=== PATIENT | female | born 1985 | race Caucasian/White ===

== ENCOUNTER 2016-12-10 05:01 | Emergency (ER) | payer BC ==
[2016-12-10 05:40] LABS: Hematocrit 42.9 % (37.0-47.0); Hemoglobin 14.1 gm/dL (12.5-16.0); Mean Cell Volume 87.7 fl (78-100); Mean Corpuscular Hemoglobin 28.8 pg (27-31); Mean Corpuscular Hgb Conc 32.9 g/dl (32-36); Mean Platelet Volume 10.4 fl (6.0-9.5); Neutrophil # 7.2 K/mm3 (1.3-6.0); Neutrophil % 68.5 % (42-75.0); Platelet Count 346 K/mm3 (150-450); Red Blood Count 4.89 M/mm3 (4.2-5.4); Red Cell Distribution Width 13.8 % (11.5-14.0); White Blood Count 10.5 K/mm3 (4.0-10.5)
[2016-12-10] MEDS ORDERED: ONDANSETRON 4 MG TAB.RAPDIS PO ONE (05:44)
[2016-12-10] MEDS ORDERED: ONDANSETRON 4 MG TAB.RAPDIS ONE (05:45)
--- NOTE | 2016-12-10 05:45 | ERNOTE ---
Medical Problem HPI - General Chief Complaint: General Assessment Time Seen by Provider: 12/10/16 05:21 Source: patient Exam Limitations: no limitations - Immun/Allergies/Home Medications Immunizations: IMMUNIZATION HX Immunizations Up to Date Yes History of Influenza Vaccine Yes Allergies/Adverse Reactions: Allergies No Known Drug Allergies Allergy (Verified 12/10/16 05:17) Home Medications: HOME MEDICATIONS Bupropion HCl [Wellbutrin Xl] 300 mg PO DAILY 12/10/16 [Last Taken Unknown] tiZANidine HCL [Zanaflex] 2 mg PO QID PRN #40 capsule 12/10/16 [Last Taken Unknown] - History of Present History Narrative: Pt states she has been having left flank spasm for 3-5 days. She was seen at [facility] and after having UA and abd xrays was told she was constipated. She was given IM toradol and norflex and a bottle of mag citrate and sent home. She did not take the mag citrate because it was late in the evening and did not want to be up all night. She was unable to sleep much and presented here Timing: getting worse Severity: moderate, severe Modifying Factors - (Improves): Present: rest - in certain positions on her couch to avoid spasm Modifying Factors - (Worsens): Present: movement Review of Systems - Review of Systems Constitutional: Absent: recent illness, fever EYE: Present: no symptoms reported ENT: Present: no symptoms reported Respiratory: Present: shortness of breath - only due to spasm of rib muscles Cardiology: Present: no symptoms reported Gastrointestinal/Abdominal: Present: See HPI, nausea. Absent: constipation - denies Genitourinary: Absent: frequency, pain Musculoskeletal: Present: See HPI, muscle pain, muscle stiffness Skin: Present: no symptoms reported Neurological: Present: no symptoms reported Endocrine: Present: no symptoms reported Hematologic/Lymphatic: Present: no symptoms reported Psych: Present: no symptoms reported - Patient's Past Medical History Patient History - Medical: No pertinent hx, Anxiety Patient History - Cardiac/Respiratory: No pertinent hx Patient History - Cancer: No Hx of Cancer Patient History - Surgical Procedures: No surgical history - Social History Living Situations: home Smoking Status: Former smoker Alcohol Use: none Drug Use: none - Immunizations Immunizations Up to Date: Yes History of Influenza Vaccine: Yes Physical Exam - Physical Exam General Appearance: Present: wd/wn, alert, mild distress Neck: Present: normal inspection, nontender, supple Respiratory: Present: no respiratory distress Gastrointestinal/Abdominal: Present: normal bowel sounds, nontender, nondistended, soft Back Exam: Present: no vertebral tenderness, muscle spasm - left latissimus . Absent: CVA tenderness (R), CVA tenderness (L) Extremity Exam: Present: normal inspection, normal range of motion, no edema Neurological Exam: Present: alert, oriented, normal mood/affect, no motor/ sensory deficits Skin Exam: Present: normal color, warm/dry ED Progress - Results and Orders Patient's Lab Results:: I have reviewed the patient's lab results. Results and Orders: Laboratory Tests 12/10/16 12/10/16 05:35 05:35 WBC 10.5 Hgb 14.1 Hct 42.9 Plt Count 346 Sodium 140 Potassium 4.5 Chloride 103 Carbon Dioxide 26.1 Anion Gap 15.4 H BUN 15 Creatinine 0.94 Est GFR (Non-Af Amer) 73 Random Glucose 109 Calcium 9.3 Calcium Adj for Albumin 9.1 Total Bilirubin 0.6 AST 22 ALT 33 Alkaline Phosphatase 99 Total Protein 8.4 H Albumin 3.9 Laboratory Tests 12/10/16 06:04 Magnesium 2.3 - Vital Signs Patient's Vital Signs:: I have reviewed the patient's vital signs. Vital Signs: Vital Signs 12/10/16 05:13 Temperature 36.2 C L Pulse Rate 91 Respiratory 20 Rate Blood Pressure 153/90 O2 Sat by Pulse 94 Oximetry - Progress/Reassessment Chief Complaint: General Assessment Departure - Departure Clinical Impression: Spasm of abdominal muscles of left side Disposition: Home self-care Condition: Good Instructions: Muscle Cramps and Spasms, Boyd-ju-Tehs Referrals: Haider Jovel MD [Primary Care Provider] - Prescriptions: tiZANidine HCL [Zanaflex] 2 mg PO QID PRN #40 capsule PRN Reason: Muscle Pain
[2016-12-10 05:54] LABS: Albumin * 3.9 gm/dl (3.4-5.0); Anion Gap 15.4 mmol/L (6.8-13.8); Bilirubin, Total 0.6 mg/dL (0.0-1.1); Ca. Corrected For Albumin 9.1 mg/dL (8.4-10.2); Calcium * 9.3 mg/dL (7.9-10.9); Carbon Dioxide 26.1 mmol/L (24-32.6); Potassium 4.5 mmol/L (3.4-4.6); Total Protein 8.4 gm/dL (6.2-8.2)
--- OUTSIDE RECORDS SUMMARY | 2016-12-10 06:40 | XMS REPORT | Continuity of Care Document ---
:1985 Author Organization [facility] ([facility]) Address [address] [place] [address] Phone [phone] Care Team Providers Name Role Phone Provider, No-Primary Care Primary Care Provider Unavailable Source Comments This disclosure is being made pursuant to the Care Everywhere program, applicable federal and state laws, and may not contain all informaitonavailable regarding this patient.[facility] ([facility]) Active Allergies and Adverse Reactions No Known Allergies Current Medications Prescription Sig. Disp. Refills Start Date End Date Status PATADAY 0.2 % ophthalmic as needed 4 03/27/2015 Active solution multivitamin Take 1 tablet by Active with minerals ( mouth daily VITAMIN) tablet Active Problems Not on file Social History Tobacco Use Types Packs/Day Years Used Date Former Smoker Alcohol Use Drinks/Week oz/Week Comments Yes 1 Standard drinks or equivalent 0.6 Last Filed Vital Signs Vital Sign Reading Time Taken Blood Pressure 130/69 04/20/2015 1:21 PM CDT Pulse 68 04/20/2015 1:21 PM CDT Temperature 37 C (98.6 F) 04/20/2015 1:21 PM CDT Respiratory Rate - - Height 1.71 m (5' 7.32") 04/20/2015 1:21 PM CDT Weight 104.3 kg (229 lb 15 oz) 04/20/2015 1:21 PM CDT Body Mass Index 35.67 04/20/2015 1:21 PM CDT Oxygen Saturation - - Plan of Care Health Maintenance Due Date Last Done Comments Hepatitis B Vaccine (1 of 3 - Primary Series) 1984 Tdap Vaccine 1995 Lipid Disorder Screening 2002 MMR Vaccine 2002 Td Vaccine 2002 Varicella Vaccine (1 of 2 - Adult - No Evidence of 2002 Immunity) Cervical Cancer Screening 2014 Influenza Vaccine: Seasonal (Season Ended) 2017 Results from Last 3 Months Not on file
[2016-12-10 07:22] VITALS: BP 135/85
== END 2016-12-10 06:38 | disposition home or self-care (01) ==
LOC: ER 05:01
DX: M62.838 Other muscle spasm (principal); Z87.891 Personal history of nicotine dependence